=== PATIENT | male | born 1970 | race Caucasian/White ===

== ENCOUNTER 2020-03-22 14:19 | Emergency (ER) | payer OTHER ==
[~2020-03-22] VITALS: Ht 172.7 cm; Wt 90.0 kg
[2020-03-22 14:30] VITALS: BP 109/76
== END 2020-03-22 15:02 | disposition home or self-care (01) ==
LOC: ER 14:19
DX: U07.1 COVID-19 (principal)
CPT/HCPCS: 87635; 99283